=== PATIENT | female | born 1950 | race Two or more races ===

== ENCOUNTER 2025-08-18 15:16 | Emergency (ER) | payer OTHER ==
[~2025-08-18] VITALS: Ht 160 cm; Wt 78.5 kg
[2025-08-18] MEDS ORDERED: NASAL MIST126 ML (16:22)
[2025-08-18] MEDS ORDERED: PAXIL40 MG PO (16:22)
[2025-08-18] MEDS ORDERED: SYNTHROID50 MCG PO (16:22)
[2025-08-18] MEDS ORDERED: ATORVASTATIN CA40 MG PO (16:23)
[2025-08-18] MEDS ORDERED: GUAIFENESIN/DEXTROMETHORPHAN 100MG/10ML BLIST.PACK PO ONE (16:45)
[2025-08-18] MEDS ORDERED: GUAIFEN/DEXTROMETHORPHAN/PE 10 ML BLIST.PACK PO ONE (18:05)
[2025-08-18 18:50] LABS: BASO % 0.4 % (0.1-1.2); EOS # 0.18 (0.04-0.54); EOS % 1.4 % (0.7-7.0); LYMPH # 2.57 (1.18-3.74); LYMPH % 20.1 % (19.3-53.1); MEAN PLATELET VOLUME 9.60 fl (9.4-12.4); MONO # 1.16 (0.24-0.82); MONO % 9.1 % (4.7-12.5); NEUT # 8.75 (1.56-6.13); NEUT % 68.5 % (34.0-71.1); RED CELL DISTRIBUTION WIDTH 12.8 % (11.6-14.4)
[2025-08-18 19:28] LABS: COVID-19 AG NEGATIVE (NEGATIVE)
[2025-08-18] MEDS ORDERED: TUSSIN DM LIQU118 ML PO (20:21)
[2025-08-18] MEDS ORDERED: ZITHROMAX500 MG PO (20:21)
== END 2025-08-18 22:18 ==
LOC: ER 15:16
PROVIDERS: General Practice
DX: J06.9 Acute upper respiratory infection, unspecified (principal); J00 Acute nasopharyngitis [common cold]; Z20.822 Contact with and (suspected) exposure to COVID-19; Z88.2 Allergy status to sulfonamides; Z88.8 Allergy status to other drugs, medicaments and biological substances; E03.9 Hypothyroidism, unspecified; M79.7 Fibromyalgia